=== PATIENT | male | born 1950 | race Caucasian/White ===

== ENCOUNTER 2017-01-08 16:51 | Emergency (ER) | payer OTHER ==
[~2017-01-08] VITALS: Ht 175.3 cm; Wt 128.0 kg
[~2017-01-08 16:51] MED LIST: ABILIFY10 MG PO; ADVAIR 250-501 EACH IH; ADVAIR 250/501 DISK IH; ADVAIR 500/501 DISK IH; ATORVASTATIN CA20 MG PO; Ascorbic Acid PO; Ascorbic Acid,Ester- PO; BENTYL20 MG PO; BUSPIRONE HCL10 MG PO; CARDIZEM CD,CA180 MG PO; CIPROFLOXACIN500 M1 PO; CITALOPRAM HBR40 M1 PO; DAILY VALUE1 EACH PO; DELTASONE10 MG PO; DESYREL100 MG PO; DEXILANT60 MG PO; EYE DROP15 ML BOTH EYES; FETZIMA80 MG PO; FOLVITE1 MG PO; GLIMEPIRIDE1 MG PO; GLUCOPHAGE500 M1 PO; GLUCOPHAGE500 MG PO; HUMIRA20 MG/0.4 SQ; HUMIRA40 MG/0.1 SC; JALYN 0.5-0.41 EACH PO; LYRICA150 MG PO; LYRICA50 MG PO; Levaquin PO; METHADOSE10 MG PO; METHOTREXATE2.5 MG PO; METRONIDAZOLE500 MG PO; NEURONTIN300 MG PO; NEURONTIN600 MG PO; NORVASC10 MG PO; NORVASC5 MG PO; PERCOCET 5/31 TABLET PO; PROAIR HFA8.5 GM IH; SEROQUEL XR150 MG PO; SEROQUEL300 MG PO; SYNTHROID175 MCG PO; THERAGRAN1 TABLET PO; ULTRAM50 MG PO; VITAMIN D22000 UNIT PO; WELLBUTRIN SR200 MG PO; ZANAFLEX4 M1 PO; ZESTRIL,PRINIVI40 M1 PO
[2017-01-08 17:49] LABS: HEMATOCRIT 42.3 % (38.0-50.0); MCH 31.2 PG (29.0-34.0); MCHC 35.2 G/DL (30.0-36.0); MCV 88.5 FL (86-99); MEAN PLAT.VOLUME 10.5 uM^3 (9.0-12.4); PLATELET COUNT 244 K/uL (156-360); RBC DIS.WIDTH-SD 41.1 % (39-53); RED BLOOD COUNT 4.78 M/uL (4.00-5.50); WHITE BLOOD COUNT 10.6 K/uL (4.1-10.2)
[2017-01-08 18:04] LABS: CHLORIDE 102 mEq/L (99-109); POTASSIUM 4.5 mEq/L (3.7-5.4); SODIUM 139 mEq/L (136-147)
[2017-01-08 18:06] LABS: GLUCOSE 99 mg/dL (70-99)
[2017-01-08 18:07] LABS: ANION GAP 9 MEQ/L (2-14)
[2017-01-08 18:10] LABS: GFR ESTIMATE (CALCULATED) 54 mL/min/; UREA NITROGEN (BUN) 29 mg/dL (9-23)
[2017-01-08 18:11] LABS: TROP-I INTERPRETATION NEGATIVE; TROPONIN-I 0.02 ng/mL (0.0-0.30)
[2017-01-08 18:54] LABS: D-DIMER ELISA 0.47 mg/L FEU (< 0.57)
[2017-01-08 20:51] LABS: TROP-I INTERPRETATION NEGATIVE; TROPONIN-I 0.01 ng/mL (0.0-0.30)
[2017-01-08] MEDS ORDERED: PREDNISONE20 MG PO (21:06)
[2017-01-08 21:31] VITALS: BP 139/77
== END 2017-01-08 21:32 | disposition home or self-care (01) ==
LOC: EME 16:51
PROVIDERS: Emergency Medicine
DX: J44.9 Chronic obstructive pulmonary disease, unspecified (principal); D72.829 Elevated white blood cell count, unspecified; J45.909 Unspecified asthma, uncomplicated; I10 Essential (primary) hypertension; E78.5 Hyperlipidemia, unspecified; E11.9 Type 2 diabetes mellitus without complications; G89.29 Other chronic pain; Z79.891 Long term (current) use of opiate analgesic; Z87.891 Personal history of nicotine dependence
CPT/HCPCS: 71020; 80048; 83880; 84484; 85027; 85379; 93005; 94640; 99281; 99284; J7512

== ENCOUNTER 2017-05-17 11:16 | Day surgery (SDC) | payer OTHER ==
[~2017-05-17] VITALS: Ht 175.3 cm; Wt 122.5 kg
[~2017-05-17 11:16] MED LIST changes: +AMARYL1 MG PO; +AVODART0.5 MG PO; +FLOMAX0.4 MG PO; +FLONASE ALLERG9.9 ML BOTH NARES; +HYDROCHLOROTH12.5 M3 PO; +LIPITOR20 MG PO; +NOVOLIN,HU100 UNITS/ SC; +PREDNISONE20 MG PO; +PRISTIQ100 MG PO; +SPIRIVA1 INHALATI IH; +ZESTRIL20 MG PO
[2017-05-17 12:07] LABS: POINT-OF-CARE METER ID UU13113694
[2017-05-17 12:59] LABS: POINT-OF-CARE METER ID UU13113694; POINT-OF-CARE USER ID AHSRSCSLC11
== END 2017-05-17 14:00 | disposition home or self-care (01) ==
LOC: PAIN 11:16 → SDC 12:30 → PAIN 14:00
PROVIDERS: Anesthesiology Pain Medicine
DX: M47.812 Spondylosis without myelopathy or radiculopathy, cervical region (principal); M54.2 Cervicalgia; M51.36 Other intervertebral disc degeneration, lumbar region; I10 Essential (primary) hypertension; J44.9 Chronic obstructive pulmonary disease, unspecified; E11.9 Type 2 diabetes mellitus without complications; E78.5 Hyperlipidemia, unspecified; E03.9 Hypothyroidism, unspecified; Z79.4 Long term (current) use of insulin; Z88.0 Allergy status to penicillin; Z87.891 Personal history of nicotine dependence; Z79.891 Long term (current) use of opiate analgesic
CPT/HCPCS: 80048; 82948; J1030; J1815; J2250; J3010; S0020

== ENCOUNTER 2017-05-24 11:45 | Day surgery (SDC) | payer OTHER ==
[~2017-05-24] VITALS: Ht 175.3 cm; Wt 122.5 kg
[2017-05-24 12:14] LABS: POINT-OF-CARE METER ID UU13113694
== END 2017-05-24 13:46 | disposition home or self-care (01) ==
LOC: PAIN 11:45 → SDC 12:30 → PAIN 12:30
PROVIDERS: Anesthesiology Pain Medicine
DX: M47.12 Other spondylosis with myelopathy, cervical region (principal); M54.2 Cervicalgia; M45.9 Ankylosing spondylitis of unspecified sites in spine; J44.9 Chronic obstructive pulmonary disease, unspecified; I10 Essential (primary) hypertension; K21.9 Gastro-esophageal reflux disease without esophagitis; E11.9 Type 2 diabetes mellitus without complications; E78.5 Hyperlipidemia, unspecified; F17.210 Nicotine dependence, cigarettes, uncomplicated; Z88.0 Allergy status to penicillin; G47.33 Obstructive sleep apnea (adult) (pediatric); E66.9 Obesity, unspecified; Z79.4 Long term (current) use of insulin; Z79.891 Long term (current) use of opiate analgesic; Z68.39 Body mass index [BMI] 39.0-39.9, adult
CPT/HCPCS: 82948; J1030; J2250; J3010; S0020

== ENCOUNTER 2017-09-04 07:38 | Day surgery (SDC) | payer OTHER ==
[~2017-09-04] VITALS: Ht 175.3 cm; Wt 122.5 kg
[~2017-09-04 07:38] MED LIST changes: +MOBIC15 MG PO; +NEURONTIN800 MG PO; +PERCOCET 10/1 TABLET PO; -PERCOCET 5/31 TABLET PO
[2017-09-04 08:01] LABS: POINT-OF-CARE METER ID UU14174212
[2017-09-10] MEDS ORDERED: MOTRIN800 MG PO (09:37)
== END 2017-09-04 09:45 | disposition home or self-care (01) ==
LOC: PAIN 07:38 → SDC 08:15 → PAIN 09:45
PROVIDERS: Anesthesiology Pain Medicine
DX: M47.816 Spondylosis without myelopathy or radiculopathy, lumbar region (principal); M51.36 Other intervertebral disc degeneration, lumbar region; M54.5 Low back pain; G89.29 Other chronic pain; M45.6 Ankylosing spondylitis lumbar region; M41.9 Scoliosis, unspecified; M25.561 Pain in right knee; N18.2 Chronic kidney disease, stage 2 (mild); E11.22 Type 2 diabetes mellitus with diabetic chronic kidney disease; I12.9 Hypertensive chronic kidney disease with stage 1 through stage 4 chronic kidney disease, or unspecified chronic kidney disease; M47.812 Spondylosis without myelopathy or radiculopathy, cervical region; J45.909 Unspecified asthma, uncomplicated; E03.9 Hypothyroidism, unspecified; E66.9 Obesity, unspecified; Z68.39 Body mass index [BMI] 39.0-39.9, adult; G47.33 Obstructive sleep apnea (adult) (pediatric); E78.00 Pure hypercholesterolemia, unspecified; Z87.891 Personal history of nicotine dependence; Z89.611 Acquired absence of right leg above knee; Z89.612 Acquired absence of left leg above knee; Z79.4 Long term (current) use of insulin; Z79.891 Long term (current) use of opiate analgesic; Z88.0 Allergy status to penicillin
CPT/HCPCS: 82948; J1030; J2250; J3010; S0020

== ENCOUNTER 2017-09-11 07:37 | Day surgery (SDC) | payer OTHER ==
[~2017-09-11] VITALS: Ht 175.3 cm; Wt 122.5 kg
[~2017-09-11 07:37] MED LIST changes: +MOTRIN800 MG PO
[2017-09-11 08:12] LABS: POINT-OF-CARE METER ID UU14174212
== END 2017-09-11 09:25 | disposition home or self-care (01) ==
LOC: PAIN 07:37 → SDC 08:15 → PAIN 08:15
PROVIDERS: Anesthesiology Pain Medicine
DX: M47.816 Spondylosis without myelopathy or radiculopathy, lumbar region (principal); M51.36 Other intervertebral disc degeneration, lumbar region; M54.5 Low back pain; G89.29 Other chronic pain; M41.9 Scoliosis, unspecified; M79.1 Myalgia; I12.9 Hypertensive chronic kidney disease with stage 1 through stage 4 chronic kidney disease, or unspecified chronic kidney disease; E11.22 Type 2 diabetes mellitus with diabetic chronic kidney disease; N18.2 Chronic kidney disease, stage 2 (mild); E11.65 Type 2 diabetes mellitus with hyperglycemia; Z89.612 Acquired absence of left leg above knee; Z89.611 Acquired absence of right leg above knee; E03.9 Hypothyroidism, unspecified; G47.33 Obstructive sleep apnea (adult) (pediatric); E78.5 Hyperlipidemia, unspecified; E66.9 Obesity, unspecified; Z68.38 Body mass index [BMI] 38.0-38.9, adult; Z87.891 Personal history of nicotine dependence
CPT/HCPCS: 82948; J1030; J2250; J3010; S0020

== ENCOUNTER 2017-10-18 11:44 | Day surgery (SDC) | payer OTHER ==
[~2017-10-18] VITALS: Ht 175.3 cm; Wt 108.9 kg
[2017-10-18 12:22] LABS: POINT-OF-CARE METER ID UU14174212
== END 2017-10-18 13:55 | disposition home or self-care (01) ==
LOC: PAIN 11:44 → SDC 12:30 → PAIN 12:30
PROVIDERS: Anesthesiology Pain Medicine
DX: M47.816 Spondylosis without myelopathy or radiculopathy, lumbar region (principal); M51.36 Other intervertebral disc degeneration, lumbar region; M41.9 Scoliosis, unspecified; M45.9 Ankylosing spondylitis of unspecified sites in spine; J45.909 Unspecified asthma, uncomplicated; Z87.891 Personal history of nicotine dependence; I10 Essential (primary) hypertension; E78.5 Hyperlipidemia, unspecified; E03.9 Hypothyroidism, unspecified; E11.65 Type 2 diabetes mellitus with hyperglycemia; Z79.4 Long term (current) use of insulin; Z88.0 Allergy status to penicillin; Z88.1 Allergy status to other antibiotic agents
CPT/HCPCS: 82948; J1030; J2250; J3010; S0020

== ENCOUNTER 2017-10-25 12:32 | Day surgery (SDC) | payer OTHER ==
[~2017-10-25] VITALS: Ht 175.3 cm; Wt 108.9 kg
[2017-10-25 13:04] LABS: POINT-OF-CARE METER ID UU14174212
== END 2017-10-25 14:50 | disposition home or self-care (01) ==
LOC: PAIN 12:32 → SDC 13:30 → PAIN 13:30
PROVIDERS: Anesthesiology Pain Medicine
DX: M47.816 Spondylosis without myelopathy or radiculopathy, lumbar region (principal); G89.29 Other chronic pain; M54.5 Low back pain; M51.36 Other intervertebral disc degeneration, lumbar region; M45.9 Ankylosing spondylitis of unspecified sites in spine; G54.6 Phantom limb syndrome with pain; M41.9 Scoliosis, unspecified; M47.812 Spondylosis without myelopathy or radiculopathy, cervical region; I12.9 Hypertensive chronic kidney disease with stage 1 through stage 4 chronic kidney disease, or unspecified chronic kidney disease; E11.22 Type 2 diabetes mellitus with diabetic chronic kidney disease; N18.2 Chronic kidney disease, stage 2 (mild); J45.909 Unspecified asthma, uncomplicated; E78.5 Hyperlipidemia, unspecified; E03.9 Hypothyroidism, unspecified; G47.33 Obstructive sleep apnea (adult) (pediatric); E66.9 Obesity, unspecified; Z68.35 Body mass index [BMI] 35.0-35.9, adult; Z87.891 Personal history of nicotine dependence; Z79.4 Long term (current) use of insulin; Z79.891 Long term (current) use of opiate analgesic
CPT/HCPCS: 82948; J1030; J2250; J3010; S0020

== ENCOUNTER 2018-02-12 10:44 | Observation (INO) | payer OTHER ==
[~2018-02-12] VITALS: Ht 172.7 cm; Wt 106.5 kg
[~2018-02-12 10:44] MED LIST changes: -NEURONTIN800 MG PO
[2018-02-12 11:31] LABS: BASOPHIL (%) 0.4 % (0-1); EOSINOPHIL (%) 1.5 % (0-5); EOSINOPHIL COUNT 0.2 K/uL (0-0.3); HEMATOCRIT 33.4 % (38.0-50.0); HEMOGLOBIN 11.5 G/DL (12.5-16.6); IMMATURE GRANULOCYTE (%) 0.5 % (0.0-0.7); LYMPHOCYTE (%) 14.2 % (15-42); LYMPHOCYTE COUNT 1.5 K/uL (1.0-2.8); MCH 29.4 PG (29.0-34.0); MCHC 34.4 G/DL (30.0-36.0); MCV 85.4 FL (86-99); MONOCYTE (%) 9.1 % (3-12); NEUTROPHIL (%) 74.3 % (45-76); NEUTROPHIL COUNT 7.9 K/uL (1.8-6.4); PLATELET COUNT 253 K/uL (156-360); RBC DIS.WIDTH-SD 40.2 % (39-53); RED BLOOD COUNT 3.91 M/uL (4.00-5.50); WHITE BLOOD COUNT 10.6 K/uL (4.1-10.2)
[2018-02-12 11:37] LABS: INTER. NORMALIZED RATIO 1.2
[2018-02-12 11:40] LABS: PTT 27.4 SEC (25-37)
[2018-02-12 11:41] LABS: CHLORIDE 95 mEq/L (99-109); POTASSIUM 4.2 mEq/L (3.7-5.4)
[2018-02-12 11:42] LABS: SODIUM 130 mEq/L (136-147)
[2018-02-12 11:43] LABS: GLUCOSE 154 mg/dL (70-99)
[2018-02-12 11:47] LABS: CREATININE 1.2 mg/dL (0.6-1.3); GFR ESTIMATE (CALCULATED) > 59 mL/min/ (58.99-99999)
[2018-02-12 11:48] LABS: UREA NITROGEN (BUN) 22 mg/dL (9-23)
[2018-02-12 11:55] LABS: TROP-I INTERPRETATION NEGATIVE; TROPONIN-I < 0.01 ng/mL (0.0-0.30)
[2018-02-12 15:22] VITALS: BP 128/80
[2018-02-12] MEDS ORDERED: CYMBALTA60 MG PO (16:12)
[2018-02-12] MEDS ORDERED: TRAZODONE HCL50 MG PO (16:14)
[2018-02-12 16:15] LABS: HDL CHOLESTEROL 28 MG/DL (Desirable>=40); LDL CHOLESTEROL 68 mg/dL (Desirable<100); NON-HDL CHOLESTEROL 86 mg/dL (Desirable<160); TOTAL CHOLESTEROL 114 mg/dL (Desirable<200); TRIGLYCERIDES 88 MG/DL (Normal: <150)
[2018-02-12 16:17] LABS: TROP-I INTERPRETATION NEGATIVE; TROPONIN-I 0.01 ng/mL (0.0-0.30)
[2018-02-12] MEDS ORDERED: VOLTAREN 1% GE100 GM TP (16:23)
[2018-02-12 19:54] LABS: TROP-I INTERPRETATION NEGATIVE; TROPONIN-I < 0.01 ng/mL (0.0-0.30)
[2018-02-12 20:03] VITALS: BP 137/84
[2018-02-13 00:09] VITALS: BP 134/74
[2018-02-13 03:30] VITALS: BP 138/76
[2018-02-13 07:12] VITALS: BP 138/67
[2018-02-13 10:11] LABS: HEMOGLOBIN A1c (GLYCOHEMOGLOB) 7.7 % (Below 5.7)
[2018-02-13 11:25] LABS: CHLORIDE 96 MEQ/L (99-109); CREATININE 1.1 MG/DL (0.6-1.3); GFR ESTIMATE (CALCULATED) > 59 mL/min/ (58.99-99999); POTASSIUM 3.9 MEQ/L (3.7-5.4); SODIUM 131 MEQ/L (136-147); UREA NITROGEN (BUN) 22 mg/dL (9-23)
[2018-02-13 11:26] VITALS: BP 132/77
[2018-02-13 11:26] LABS: GLUCOSE 108 mg/dL (70-99)
[2018-02-13] MEDS ORDERED: ASPIR-LOW81 MG PO (14:14)
[2018-02-13 14:44] VITALS: BP 167/85
== END 2018-02-13 15:30 | disposition home health service (06) ==
LOC: EME 10:44 → 5SOUTH 12:07 → EDOF 12:07 → ENRESERV 12:24 → EDOF 12:34 → ENRESERV 12:55 → 5SOUTH 15:13
PROVIDERS: Emergency Medicine; Internal Medicine
DX: G45.9 Transient cerebral ischemic attack, unspecified (principal); R41.0 Disorientation, unspecified; R47.81 Slurred speech; J45.909 Unspecified asthma, uncomplicated; E11.42 Type 2 diabetes mellitus with diabetic polyneuropathy; I10 Essential (primary) hypertension; E03.9 Hypothyroidism, unspecified; N40.0 Benign prostatic hyperplasia without lower urinary tract symptoms; F31.9 Bipolar disorder, unspecified; R11.2 Nausea with vomiting, unspecified; R19.7 Diarrhea, unspecified; M06.9 Rheumatoid arthritis, unspecified; G89.29 Other chronic pain; Z87.891 Personal history of nicotine dependence; E66.9 Obesity, unspecified; E78.5 Hyperlipidemia, unspecified; Z79.4 Long term (current) use of insulin; Z88.0 Allergy status to penicillin; Z89.612 Acquired absence of left leg above knee
CPT/HCPCS: 70450; 70551; 71045; 80048; 80061; 82948; 83036; 84484; 85025; 85610; 85730; 92610 GN; 93005; 93306; 93880; 94640; 94640 76; 94760; 94799; 99202; 99281; 99285; G0378; G8978 GP CH; G8979 GP CH; G8980 GP CH; G9162 GN CI; G9163 GN CI; G9164 GN CI; J1650; J1815; J7512

== ENCOUNTER 2018-02-15 22:16 | Emergency (ER) | payer OTHER ==
[~2018-02-15] VITALS: Ht 175.3 cm; Wt 105.0 kg
[~2018-02-15 22:16] MED LIST changes: +ASPIR-LOW81 MG PO; +CYMBALTA60 MG PO; +TRAZODONE HCL50 MG PO; +VOLTAREN 1% GE100 GM TP
[2018-02-15 22:43] LABS: HEMATOCRIT 38.5 % (38.0-50.0); HEMOGLOBIN 13.3 G/DL (12.5-16.6); MCH 29.2 PG (29.0-34.0); MCHC 34.5 G/DL (30.0-36.0); MCV 84.6 FL (86-99); PLATELET COUNT 392 K/uL (156-360); RBC DIS.WIDTH-CV 12.8 % (11.8-14.6); RBC DIS.WIDTH-SD 39.4 % (39-53); RED BLOOD COUNT 4.55 M/uL (4.00-5.50); WHITE BLOOD COUNT 10.2 K/uL (4.1-10.2)
[2018-02-15 22:53] LABS: CHLORIDE 95 mEq/L (99-109); SODIUM 133 mEq/L (136-147)
[2018-02-15 22:55] LABS: GLUCOSE 139 mg/dL (70-99)
[2018-02-15 22:59] LABS: CREATININE 1.2 mg/dL (0.6-1.3); GFR ESTIMATE (CALCULATED) > 59 mL/min/ (58.99-99999)
[2018-02-15 23:00] LABS: UREA NITROGEN (BUN) 20 mg/dL (9-23)
[2018-02-15 23:22] VITALS: BP 143/78
== END 2018-02-16 | disposition home or self-care (01) ==
LOC: EME 22:16
DX: J06.9 Acute upper respiratory infection, unspecified (principal); J44.1 Chronic obstructive pulmonary disease with (acute) exacerbation; R94.31 Abnormal electrocardiogram [ECG] [EKG]; E11.40 Type 2 diabetes mellitus with diabetic neuropathy, unspecified; Z79.4 Long term (current) use of insulin; E78.5 Hyperlipidemia, unspecified; M06.9 Rheumatoid arthritis, unspecified; Z87.891 Personal history of nicotine dependence; Z89.612 Acquired absence of left leg above knee; Z87.19 Personal history of other diseases of the digestive system; Z87.442 Personal history of urinary calculi; Z88.0 Allergy status to penicillin; Z88.6 Allergy status to analgesic agent; Z88.1 Allergy status to other antibiotic agents
CPT/HCPCS: 70450; 71046; 80048; 85027; 93005; J7512

== ENCOUNTER 2018-05-27 17:53 | Inpatient (IN) | payer OTHER ==
[~2018-05-27] VITALS: Ht 162.6 cm; Wt 99.1 kg
[2018-05-27 18:11] LABS: BASOPHIL (%) 0.8 % (0-1); BASOPHIL COUNT 0.1 K/uL (0-0.1); EOSINOPHIL (%) 3.8 % (0-5); EOSINOPHIL COUNT 0.4 K/uL (0-0.3); HEMATOCRIT 36.8 % (38.0-50.0); HEMOGLOBIN 12.3 G/DL (12.5-16.6); IMMATURE GRANULOCYTE (%) 0.5 % (0.0-0.7); LYMPHOCYTE (%) 20.3 % (15-42); LYMPHOCYTE COUNT 2.3 K/uL (1.0-2.8); MCH 28.7 PG (29.0-34.0); MCHC 33.4 G/DL (30.0-36.0); MCV 85.8 FL (86-99); MONOCYTE (%) 8.1 % (3-12); MONOCYTE COUNT 0.9 K/uL (0-0.8); NEUTROPHIL (%) 66.5 % (45-76); NEUTROPHIL COUNT 7.7 K/uL (1.8-6.4); PLATELET COUNT 286 K/uL (156-360); RBC DIS.WIDTH-CV 16.3 % (11.8-14.6); RBC DIS.WIDTH-SD 51.3 % (39-53); RED BLOOD COUNT 4.29 M/uL (4.00-5.50); WHITE BLOOD COUNT 11.5 K/uL (4.1-10.2)
[2018-05-27 18:16] LABS: INTER. NORMALIZED RATIO 1.2
[2018-05-27 18:19] LABS: PTT 28.3 SEC (25-37)
[2018-05-27 18:37] LABS: AMYLASE 29 IU/L (1-118); CHLORIDE 98 MEQ/L (99-109); POTASSIUM 4.5 MEQ/L (3.7-5.4); SODIUM 133 MEQ/L (136-147)
[2018-05-27 18:45] LABS: CREATININE 1.3 MG/DL (0.6-1.3); GFR ESTIMATE (CALCULATED) 59 mL/min/ (58.99-99999); GLUCOSE 151 mg/dL (70-99); LIPASE 4 U/L (1.0-51.0); SERUM ETHYL ALCOHOL < 10 mg/dL; UREA NITROGEN (BUN) 22 mg/dL (9-23)
[2018-05-27 18:46] LABS: TROP-I INTERPRETATION NEGATIVE; TROPONIN-I < 0.01 ng/mL (0.0-0.30)
[2018-05-27 19:51] LABS: APPEARANCE CLEAR ((CLEAR)); BILIRUBIN NEGATIVE; BLOOD NEGATIVE; COLOR YELLOW ((YELLOW)); GLUCOSE (STRIP) NEGATIVE; KETONES NEGATIVE; LEUKOCYTES LARGE; NITRITE POSITIVE; PROTEIN (STRIP) NEGATIVE; SPECIFIC GRAVITY 1.017 (1.000-1.030); UROBILINOGEN 0.2 MG/DL (0.2-1.0)
[2018-05-27 19:58] LABS: BACTERIA RARE /HPF; EPITHELIAL CELLS RARE /HPF; MUCUS TRACE /LPF; RED BLOOD CELLS 0-5 /HPF (0-5); UCUL ADDED? YES; WHITE BLOOD CELLS TNTC /HPF (0-5)
[2018-05-27 20:02] LABS: AMPHETAMINE NEGATIVE (500 ng/mL); BARBITURATES NEGATIVE (200 ng/mL); BENZODIAZEPINES NEGATIVE (150 ng/mL); BUPRENORPHINE NEGATIVE (10 ng/mL); COCAINE NEGATIVE (150 ng/mL); METHADONE NEGATIVE (200 ng/mL); METHAMPHETAMINE NEGATIVE (500 ng/mL); OPIATES (MORPHINE) NEGATIVE (100 ng/mL); OXYCODONE PRESUMPTIVE POSITIVE (100 ng/mL); PHENCYCLIDINE NEGATIVE (25 ng/mL); PROPOXYPHENE NEGATIVE (300 ng/mL); THC CANNABINOIDS NEGATIVE (50 ng/mL); TRICYCLIC ANTIDEPRESSANTS PRESUMPTIVE POSITIVE (300 ng/mL)
[2018-05-27 23:04] LABS: HDL CHOLESTEROL 33 MG/DL (Desirable>=40); LDL CHOLESTEROL 68 mg/dL (Desirable<100); NON-HDL CHOLESTEROL 83 mg/dL (Desirable<160); TOTAL CHOLESTEROL 116 mg/dL (Desirable<200); TRIGLYCERIDES 77 MG/DL (Normal: <150)
[2018-05-28 01:00] VITALS: BP 128/69
[2018-05-28 01:07] LABS: TROP-I INTERPRETATION NEGATIVE; TROPONIN-I 0.01 ng/mL (0.0-0.30)
[2018-05-28 03:39] VITALS: BP 118/66
[2018-05-28 06:43] LABS: TROP-I INTERPRETATION NEGATIVE; TROPONIN-I < 0.01 ng/mL (0.0-0.30)
[2018-05-28 07:15] VITALS: BP 134/77
[2018-05-28 09:36] LABS: HEMATOCRIT 40.7 % (38.0-50.0); HEMOGLOBIN 13.2 G/DL (12.5-16.6); MCH 28.4 PG (29.0-34.0); MCHC 32.4 G/DL (30.0-36.0); MCV 87.7 FL (86-99); PLATELET COUNT 294 K/uL (156-360); RBC DIS.WIDTH-CV 16.2 % (11.8-14.6); RBC DIS.WIDTH-SD 52.6 % (39-53); RED BLOOD COUNT 4.64 M/uL (4.00-5.50); WHITE BLOOD COUNT 10.1 K/uL (4.1-10.2)
[2018-05-28 10:09] LABS: CHLORIDE 104 MEQ/L (99-109); CREATININE 1.1 MG/DL (0.6-1.3); GFR ESTIMATE (CALCULATED) > 59 mL/min/ (58.99-99999); POTASSIUM 4.2 MEQ/L (3.7-5.4); SODIUM 139 MEQ/L (136-147); UREA NITROGEN (BUN) 15 mg/dL (9-23)
[2018-05-28 10:10] LABS: GLUCOSE 108 mg/dL (70-99)
[2018-05-28 11:36] VITALS: BP 135/97
[2018-05-28 11:37] LABS: HEMOGLOBIN A1c (GLYCOHEMOGLOB) 8.3 % (Below 5.7)
[2018-05-28 15:37] VITALS: BP 133/67
[2018-05-28 19:48] VITALS: BP 143/68
[2018-05-29 00:03] VITALS: BP 159/98
[2018-05-29 04:00] VITALS: BP 143/83
[2018-05-29 07:43] VITALS: BP 154/88
== END 2018-05-29 12:56 | disposition home health service (06) | DRG 92 ==
LOC: EME 17:53 → 5SOUTH 21:00 → EDOF 21:00 → ENRESERV 21:19 → 5SOUTH 05-28 00:14
PROVIDERS: Emergency Medicine; Hospitalist; Physician Assistant Medical
DX: R47.01 Aphasia (principal); R29.810 Facial weakness; I95.9 Hypotension, unspecified; R41.82 Altered mental status, unspecified; T40.2X5A Adverse effect of other opioids, initial encounter; N39.0 Urinary tract infection, site not specified; E11.649 Type 2 diabetes mellitus with hypoglycemia without coma; T38.3X5A Adverse effect of insulin and oral hypoglycemic [antidiabetic] drugs, initial encounter; G89.29 Other chronic pain; J44.9 Chronic obstructive pulmonary disease, unspecified; E11.40 Type 2 diabetes mellitus with diabetic neuropathy, unspecified; I12.9 Hypertensive chronic kidney disease with stage 1 through stage 4 chronic kidney disease, or unspecified chronic kidney disease; E11.22 Type 2 diabetes mellitus with diabetic chronic kidney disease; N18.9 Chronic kidney disease, unspecified; E78.5 Hyperlipidemia, unspecified; F41.9 Anxiety disorder, unspecified; F31.9 Bipolar disorder, unspecified; K21.9 Gastro-esophageal reflux disease without esophagitis; M06.9 Rheumatoid arthritis, unspecified; R35.0 Frequency of micturition; N40.0 Benign prostatic hyperplasia without lower urinary tract symptoms; Z89.612 Acquired absence of left leg above knee; Z86.73 Personal history of transient ischemic attack (TIA), and cerebral infarction without residual deficits; Z79.4 Long term (current) use of insulin; Z88.0 Allergy status to penicillin; Z87.891 Personal history of nicotine dependence; Z79.891 Long term (current) use of opiate analgesic
CPT/HCPCS: 70450; 70496; 70498; 70551; 71045; 80047; 80048; 80061; 81003; 82150; 82948; 83036; 83605; 83690; 84484; 85025; 85027; 85610; 85730; 86850; 86900; 86901; 87040; 87077; 87086 GA; 87186; 92610 GN; 93005; 93306; 94640; 94799; 99281; 99285; G0480; J1650; J1815; J1956; J2310; J7030; J7120